=== PATIENT | male | born 1990 | race Caucasian/White ===

== ENCOUNTER 2024-04-11 11:54 | Emergency (ER) | payer SELFPAY ==
[2024-04-11 13:10] LABS: #Basophils 0.02 10x3/uL (0.0-0.2); #Eosinophils 0.01 10x3/uL (0.0-0.5); #Monocytes 1.07 10x3/uL (0.0-1.1); #Neutrophils 13.55 10x3/uL (1.5-8.4); %Basophils 0.1 % (0.0-2.0); %Eosinophils 0.1 % (0.0-6.0); %Lymphocytes 8.1 % (18.0-47.0); %Monocytes 6.7 % (0.0-10.0); %Neutrophils 84.6 % (40.0-75.0); Hematocrit 45.3 % (38.8-50.0); Hemoglobin 15.5 g/dL (13.5-17.5); Mean Corpuscular HGB CONC 34.2 g/dL (32.0-36.0); Mean Corpuscular Hemoglobin 29.4 pg (27.0-33.0); Mean Platelet Volume 12.5 fL (7.4-10.4); Platelet Count 169 10x3/uL (150-450); RBC Distribution Width 11.7 % (11.5-14.5); Red Blood Cell (RBC) Count 5.27 10x6/uL (4.32-5.72)
[2024-04-11 13:22] LABS: ALT (SGPT) 22 U/L (8-55); AST (SGOT) 18 U/L (5-34); Albumin 3.2 g/dL (3.5-5.0); Alkaline Phosphatase 51 U/L (40-110); Anion Gap 14 mmol/L (10-20); BUN (Urea Nitrogen) 8 mg/dL (8.9-20.6); Bilirubin, Total 0.9 mg/dL (0.2-1.2); Calc. Creatinine Clearance 0 mL/min (70-130); Calcium 8.6 mg/dL (7.8-10.44); Carbon Dioxide 22 mmol/L (22-29); Chloride 100 mmol/L (98-107); Estimated GFR 119; Globulin 3.8 g/dL (2.4-3.5); Glucose 293 mg/dL (70-105); Lipase 10 U/L (8-78); Potassium 4.1 mmol/L (3.5-5.1); Sodium 132 mmol/L (136-145)
[2024-04-11 13:29] LABS: Troponin I Less than 0.010 ng/mL (< 0.028)
== END 2024-04-11 14:12 | disposition home or self-care (01) ==
LOC: CSHERS 11:54
DX: R05.9 Cough, unspecified (principal); E11.65 Type 2 diabetes mellitus with hyperglycemia
CPT/HCPCS: 71045; 80053; 83605; 83690; 84484; 85025; 87428; 93005; 96360